=== PATIENT | female | born 1980 | race Hispanic/Latino ===

== ENCOUNTER 2018-12-29 08:12 | Outpatient (CLI) | payer BC | END 2018-12-29 08:13 | disposition home or self-care (01) | LOC: RAD 08:12 | DX: R10.9 Unspecified abdominal pain (principal) ==

== ENCOUNTER 2019-01-22 07:22 | Outpatient (CLI) | payer BC | END 2019-01-22 07:23 | disposition home or self-care (01) | LOC: RAD 07:22 ==